=== PATIENT | male | born 1970 | race Caucasian/White ===

== ENCOUNTER → 2016-11-19 | Outpatient (CLI) | payer BC ==
[2016-11-19 10:47] LABS: RED BLOOD COUNT 4.77 M/UL (4.20-5.50); WHITE BLOOD COUNT 5.1 K/UL (4.5-11.0)
[2016-11-19 11:07] LABS: BUN/CREATININE RATIO 9 (0-10)
== END ==
LOC: LAB 10:00
PROVIDERS: Nurse Practitioner Family
DX: Z13.220 Encounter for screening for lipoid disorders (principal); I10 Essential (primary) hypertension
CPT/HCPCS: 36415; 80053; 80061; 84439; 84443; 85025

== ENCOUNTER → 2020-07-15 | Outpatient (CLI) | payer OTHER ==
[~2020-07-15] MED LIST: BACTRIM DS TAB1 EACH PO; CIPRO500 MG PO; FLAGYL500 MG PO; FLEXERIL 10 MG10 MG PO; KEFLEX CAP 500500 MG PO; NAPROSYN500 MG PO; NORCO 7.5-3251 EACH PO; PERCOCET 5-3251 EACH PO
== END ==
LOC: KOH-I 12:12
DX: M54.5 Low back pain (principal); M47.816 Spondylosis without myelopathy or radiculopathy, lumbar region; S33.140A Subluxation of L4/L5 lumbar vertebra, initial encounter; X58.XXXA Exposure to other specified factors, initial encounter
CPT/HCPCS: 72110

== ENCOUNTER 2020-08-21 10:30 | Emergency (ER) | payer OTHER ==
[~2020-08-21 10:30] MED LIST changes: -PERCOCET 5-3251 EACH PO
[2020-08-21 12:08] LABS: HEMOGLOBIN 15.4 gm/dl (14.0-17.5); RED BLOOD COUNT 4.7 M/UL (4.20-5.50)
[2020-08-21 12:28] LABS: BUN/CREATININE RATIO 12 (0-10)
[2020-08-21] MEDS ORDERED: PERCOCET 5-3251 EACH PO (17:17)
== END 2020-08-21 18:00 | disposition home or self-care (01) ==
LOC: ER1 10:30
PROVIDERS: Family Medicine
DX: K57.32 Diverticulitis of large intestine without perforation or abscess without bleeding (principal); N32.1 Vesicointestinal fistula; Z79.899 Other long term (current) drug therapy
CPT/HCPCS: 80053; 81001; 83605; 83690; 85025; 86140; 87086; 99284; Q9967

== ENCOUNTER → 2020-10-09 | Outpatient (CLI) | payer OTHER ==
[~2020-10-09] MED LIST changes: +PERCOCET 5-3251 EACH PO
== END ==
LOC: RAD 10:00
DX: N32.1 Vesicointestinal fistula (principal)
CPT/HCPCS: 74430; Q9958